=== PATIENT | female | born 1995 | race Two or more races ===

== ENCOUNTER 2019-06-01 16:25 | Inpatient (IN) | payer OTHER ==
[2019-06-01] MEDS ORDERED: AMPICILLIN SODIUM 2 GM VIAL ONE (17:22)
[2019-06-01] MEDS ORDERED: AMPICILLIN - 2 GM in SODIUM CHLORIDE 100 ML IVPB ONE (17:30)
[2019-06-01 17:48] VITALS: BMI 32.9
[2019-06-01] MEDS ORDERED: DEXTROSE 5%-LACTATED RINGERS 1,000 ML IV SCH ×2 (18:45→19:30)
[2019-06-01 18:49] LABS: BASO % 0.2 % (0-2.0); EOS % 0.6 % (0-4.5); HEMATOCRIT 29.3 % (32.4-45.2); HEMOGLOBIN 9.5 GM/dL (10.7-15.3); LYMPH % 22.6 % (8-40); MCH 25.6 pg (25.7-33.7); MCHC 32.3 g/dl (32.0-36.0); MEAN CELL VOLUME 79.2 fl (80-96); MEAN PLT VOLUME 8.2 fl (7.5-11.1); MONO % 9.1 % (3.8-10.2); NEUT % 67.5 % (42.8-82.8); PLATELET COUNT 282 K/MM3 (134-434); RDW 16.7 % (11.6-15.6); WHITE BLOOD COUNT 8.2 K/mm3 (4.0-10.0)
[2019-06-01 19:07] LABS: ACTIVATED PTT 25.2 SECONDS (25.2-36.5); PROTHROMBIN TIME (PATIENT) 11.8 SEC (9.7-13.0)
[2019-06-01 19:16] LABS: BLOOD UREA NITROGEN 5.3 mg/dL (7-18); CALCIUM 8.1 mg/dL (8.5-10.1); CREATININE 0.4 mg/dL (0.55-1.3); POTASSIUM 4.2 mmol/L (3.5-5.1)
[2019-06-01] MEDS ORDERED: BUTORPHANOL TARTRATE 1 MG/ML VIAL IVPUSH PRN (19:18)
[2019-06-01] MEDS ORDERED: PROMETHAZINE HCL 25 MG/1 ML VIAL IVPB PRN (19:19)
[2019-06-01] MEDS ORDERED: PROMETHAZINE HCL 25 MG/1 ML VIAL ONE (19:25)
--- NOTE | 2019-06-01 19:28 | HP ---
Past Medical History - Admission Chief Complaint: Labor pain History of Present Illness: 24 yo @ 36.4 weeks gestation, EDC 06/25/19, admitted for labor pain. She has h/o delivery and was on [place] throughout the . She was transferred to [facility] but opted to come to [facility] for delivery. Upon admission she was 6-7cm dilated with intact membrane. History Source: Patient Limitations to Obtaining History: No Limitations - Past Medical History ...: 3 ...Para: 2 ...Term: 0 ...: 2 ...Spon : 0 ...Induced : 0 ...Multiple Gestation: 0 ...EDC by Sono: 06/25/19 - Past Surgical History Past Surgical History: Yes: None Hx Myomectomy: No Hx Transabdominal Cerclage: No - Smoking History Smoking history: Never smoked Have you smoked in the past 12 months: No - Alcohol/Substance Use Hx Alcohol Use: No History of Substance Use: reports: None - Social History Do you think of yourself as: Straight/Heterosexual History of Recent Travel: No Home Medications - Allergies Allergies/Adverse Reactions: Allergies Allergy/AdvReac Type Severity Reaction Status Date / Time metronidazole [From Flagyl] Allergy Intermediate Swelling Verified 06/01/19 17: 25 - Home Medications Home Medications: Ambulatory Orders Hydroxyprogesterone Caproate [[place]] 250 mg IM WEEKLY 03/04/19 Pnv No.95/Ferrous Fum/Folic AC [ Vitamin Tablet] 1 each PO DAILY Family Medical History Family History: Unremarkable Review of Systems - Review of Systems Constitutional: reports: No Symptoms Eyes: reports: No Symptoms HENT: reports: No Symptoms Neck: reports: No Symptoms Cardiovascular: reports: No Symptoms Respiratory: reports: No Symptoms Gastrointestinal: reports: No Symptoms Genitourinary: reports: Pain Breasts: reports: No Symptoms Reported Musculoskeletal: reports: No Symptoms Integumentary: reports: No Symptoms Neurological: reports: No Symptoms Endocrine: reports: No Symptoms Hematology/Lymphatic: reports: No Symptoms Psychiatric: reports: No Symptoms Pain Intensity: 8 Physical Exam - Maternity Vital Signs: Vital Signs Temperature 98.5 F 06/01/19 18:00 Pulse Rate 94 H 06/01/19 18:00 Respiratory Rate 18 06/01/19 18:00 Blood Pressure 120/84 06/01/19 18:00 O2 Sat by Pulse Oximetry (%) Constitutional: Yes: Well Nourished Eyes: Yes: Conjunctiva Clear HENT: Yes: Atraumatic Neck: Yes: Supple Cardiovascular: Yes: Regular Rate and Rhythm Lungs: Clear to auscultation - Abdominal Exam/OB Number of Fetuses: Single Presentation: Vertex - Vaginal Exam/OB Dilatation (cm): 6 Effacement (%): 90 Amniotic Membrane Status: Intact Presentation: Vertex/Position Station: -1 - Physical Exam Musculoskeletal: Yes: WNL Extremities: Yes: WNL ...Motor Strength: WNL Psychiatric: Yes: Alert, Oriented - Labs Lab Results: CBC, BMP 06/01/19 18:30 06/01/19 18:30 Problem List - Problems (1) 36 weeks gestation of Problems reviewed: Yes Code(s): Z3A.36 - 36 WEEKS GESTATION OF (2) Pain during labor Code(s): O99.89 - OTH DISEASES AND CONDITIONS COMPL PREG/CHLDBRTH; R52 - PAIN, UNSPECIFIED (3) History of delivery, currently in third trimester Code(s): O09.213 - SUPRVSN OF PREG W HISTORY OF PRE-TERM LABOR, THIRD TRIMESTER Assessment/Plan 36 weeks gestation H/O delivery Labor pain Admit to L&D Ampicillin Analgesia as needed Anticipate
[2019-06-01] MEDS ORDERED: OXYTOCIN 20 UNITS in 0.9% NS 20 UNIT/1,000 ML INFUS.BAG IV ONE (20:00)
[2019-06-01] MEDS ORDERED: BENZOCAINE 28 GM HEMORRHOIDAL OINTMENT TP PRN (20:05)
[2019-06-01] MEDS ORDERED: WITCH HAZEL 50% (TUCKS) 40 PAD/JAR PAD TP PRN (20:05)
[2019-06-01] MEDS ORDERED: BISACODYL 10 MG SUPP.RECT RC PRN (20:05)
[2019-06-01] MEDS ORDERED: BENZOCAINE 20% 57 GM BOTTLE TP PRN (20:05)
[2019-06-01] MEDS ORDERED: METHYLERGONOVINE MALEATE 0.2 MG/1 ML AMP IM PRN (20:05)
--- NOTE | 2019-06-01 20:11 | PN ---
Delivery - Delivery Vaginal Delivery: Spontaneous Episiotomy/Laceration: None EBL (cc): 300 Delivery, Single - Feeding Plan Initial Plan: Elected not to breastfeed exclusively throughout hospitalization Remarks - Remarks Remarks: Normal spontaneous vaginal delivery of a live infant girl over intact perineum. Nose / Oropharynx suctioned @ perineum. Cord clamped and cut. Baby handed to nurse. Placenta expelled spontaneously intact. Mother in stable condition
[2019-06-01] MEDS ORDERED: OXYTOCIN 20 UNITS in 0.9% NS 20 UNIT/1,000 ML INFUS.BAG IV SCH (20:15)
[2019-06-01] MEDS: ACETAMINOPHEN 325 MG TABLET (FP) PO PRN (22:30)
[2019-06-01] MEDS: FERROUS SO4 325 MG TABLET (FP) PO SCH (22:30)
[2019-06-01] MEDS: IBUPROFEN 600 MG TABLET (FP) PO PRN (22:31)
[2019-06-02] MEDS: AMPICILLIN - 1 GM in SODIUM CHLORIDE 100 ML IVPB SCH ×3 (05:26→22:40)
[2019-06-02] MEDS ORDERED: PNEUMOCOCCAL 23 VACCINE 0.5 ML VIAL IM ONE (06:15)
[2019-06-02 07:14] LABS: BASO % 0.3 % (0-2.0); EOS % 0.7 % (0-4.5); HEMATOCRIT 25.6 % (32.4-45.2); HEMOGLOBIN 8.4 GM/dL (10.7-15.3); LYMPH % 21.4 % (8-40); MEAN PLT VOLUME 8.3 fl (7.5-11.1); MONO % 9.6 % (3.8-10.2); PLATELET COUNT 204 K/MM3 (134-434); RBC 3.24 M/mm3 (3.60-5.2); RDW 16.5 % (11.6-15.6); WHITE BLOOD COUNT 9.5 K/mm3 (4.0-10.0)
[2019-06-02] MEDS: PRENATAL VITAMINS W/ FOLIC ACID TABLET (FP) PO SCH (09:13)
[2019-06-02] MEDS: FERROUS SO4 325 MG TABLET (FP) PO SCH ×2 (09:13→21:35)
[2019-06-02] MEDS: IBUPROFEN 600 MG TABLET (FP) PO PRN ×3 (09:16→21:35)
[2019-06-02] MEDS: ACETAMINOPHEN 325 MG TABLET (FP) PO PRN ×3 (09:17→21:35)
[2019-06-02] MEDS ORDERED: PNEUMOC 13-VAL CONJ-DIP CRM/PF 0.5 ML DISP.SYRIN IM ONE (10:00)
[2019-06-02] MEDS ORDERED: FLU VACC QS2019-20(6MOS UP)/PF 60 MCG/0.5 ML SYRINGE IM ONE (10:00)
[2019-06-02] MEDS ORDERED: FLU VACCINE QUAD 60 MCG/0.5 ML (MDV 19-20) IM ONE (10:00)
[2019-06-02] MEDS ORDERED: DIPHTH,PERTUSS(ACELL),TET 0.5 ML DISP.SYRIN IM ONE (10:00)
[2019-06-02 14:46] LABS: RPR NONREACTIVE (NONREACTIVE)
[2019-06-02] MEDS ORDERED: SENNOSIDES/DOCUSATE COMBO (SENNA PLUS) TABLET (UD) PO PRN (22:00)
--- NOTE | 2019-06-03 06:40 | DS ---
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: Vital Signs Temperature 98.6 F 06/02/19 20:43 Pulse Rate 72 06/02/19 20:43 Respiratory Rate 18 06/02/19 20:43 Blood Pressure 108/58 L 06/02/19 20:43 O2 Sat by Pulse Oximetry (%) 100 06/01/19 21:45 Constitutional: Yes: Well Nourished, No Distress Gastrointestinal: Yes: WNL, Soft ....Post : Yes: Uterus firm, Uterus non-tender Breast(s): Yes: WNL Extremities: Yes: WNL Neurological: Yes: WNL, Alert, Oriented Labs: CBC, BMP 06/02/19 06:52 06/01/19 18:30 Delivery - Delivery Vaginal Delivery: Spontaneous Type of Anesthesia: None Episiotomy/Laceration: None EBL (cc): 300 Delivery, Single - Stages of Labor Date 1st Stage Initiatied: 06/01/19 Time 1st Stage Initiated: 17:00 Date 2nd Stage Initiated: 06/01/19 Time 2nd Stage Initiated: 19:45 Date of Delivery: 06/01/19 Time of Delivery: 19:55 Time Placenta Delivered: 20:00 - 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 Gender: Female Weight: 6 lb 4 oz Position: Right, OA Total Hours ROM (Hrs/Mins): 55m - 1 Minute Total Score: 9 5 Minutes Total Score: 9 - [place] Feeding Plan Initial Plan: Elected not to breastfeed exclusively throughout hospitalization Discharge Summary Reason For Visit: ADMIT LABOR Current Active Problems 36 weeks gestation of (Acute) History of delivery, currently in third trimester (Acute) Pain during labor (Acute) Condition: Good - Instructions Diet, Activity, Other Instructions: Physical activity Resume your normal everyday activity as tolerated no heavy lifting or exercise until seen by your surgeon. You may walk unlimited korin of and climb stairs. You may resume driving the car when you feel safe and comfortable behind the wheel. No sexual activity as instructed. Wound care If you have a bandage, leave it on, and keep dry for 48-72 hours. After that time discard the outer bandage. If they are tapes on the skin under the out of bandage leave them in place. They will peel off in the next 7 to 10 days. Do Not Peel them off. You may shower the day after surgery. If there are tapes present on the skin, you may shower over them. Diet There are no dietary restrictions. Eat healthy, high-fiber foods. Drink 6 to 8 glasses of liquid each day. This will assist in keeping your bowels are regular. Pain management You may take Tylenol or acetaminophen or Ibuprofen (for example, Motrin, Advil etc.) from my pain prescription medication is ordered should be taken as prescribed for moderate to severe pain. Call MD for any of the following: Severe pain not relieved by medication Fever of 101 or higher Excessive bleeding or drainage on dressing Inability to urinate Disposition: HOME - Home Medications Comprehensive Discharge Medication List: Ambulatory Orders Hydroxyprogesterone Caproate [[place]] 250 mg IM WEEKLY 03/04/19 Pnv No.95/Ferrous Fum/Folic AC [ Vitamin Tablet] 1 each PO DAILY Ibuprofen [Motrin -] 600 mg PO QID #28 tablet 06/03/19
[2019-06-03] MEDS: FERROUS SO4 325 MG TABLET (FP) PO SCH (09:31)
[2019-06-03] MEDS: PRENATAL VITAMINS W/ FOLIC ACID TABLET (FP) PO SCH (09:31)
[2019-06-03 11:10] VITALS: BP 110/69; PULSE 77; TEMP 98.3
[2019-06-03] MEDS: IBUPROFEN 600 MG TABLET (FP) PO PRN (12:19)
[2019-06-03] MEDS: ACETAMINOPHEN 325 MG TABLET (FP) PO PRN (12:20)
== END 2019-06-03 14:05 | disposition home or self-care (01) | DRG 560 ==
LOC: JDEL 16:25 → JLDR 17:00 → J3W 22:11
PROVIDERS: ADMIT Obstetrics & Gynecology; ATTEND Obstetrics & Gynecology
PROC: 10E0XZZ Delivery of Products of Conception, External Approach (ICD-10-PCS; principal; 2019-06-01)
DX: O60.14X0 Preterm labor third trimester with preterm delivery third trimester, not applicable or unspecified (principal); Z3A.36 36 weeks gestation of pregnancy; Z37.0 Single live birth
CPT/HCPCS: 36415; 59025; 59409; 80048; 85025; 85610; 85730; 86593; 86850; 86900; 86901; 87389; 90686; 90715; 90732; G0008; G0009

== ENCOUNTER 2023-08-25 06:17 | Emergency (ER) | payer OTHER ==
[2023-08-25 06:30] VITALS: BP 121/80; PULSE 110; RESP 18; TEMP 98.7; BMI 27.4
[2023-08-25 09:18] LABS: BASO % 0.5 % (0-2.0); EOS % 0.2 % (0-4.5); HEMATOCRIT 35.1 % (32.4-45.2); HEMOGLOBIN 11.9 GM/dL (10.7-15.3); LYMPH % 18.6 % (8-40); MCH 29.9 pg (25.7-33.7); MCHC 33.8 g/dl (32.0-36.0); MEAN CELL VOLUME 88.5 fl (80-96); MEAN PLT VOLUME 7.6 fl (7.5-11.1); MONO % 4.7 % (3.8-10.2); PLATELET COUNT 299 10^3/uL (134-434); RBC 3.96 M/mm3 (3.60-5.2); RDW 13.9 % (11.6-15.6); WHITE BLOOD COUNT 8.7 K/mm3 (4.0-10.0)
[2023-08-25 09:20] LABS: EPI CELLS >36 /uL (0-25.1); HYALINE CASTS 5 /uL (0-3.1); PH,URINE 6.5 (5.0-8.0); URINE APPEARANCE CLOUDY; URINE BACTERIA >9,000 /uL (0-1359); URINE BILIRUBIN NEGATIVE (NEGATIVE); URINE COLOR YELLOW; URINE GLUCOSE (UA) NEGATIVE (NEGATIVE); URINE KETONE NEGATIVE (NEGATIVE); URINE LEUK ESTERASE TRACE (NEGATIVE); URINE NITRITE POSITIVE (NEGATIVE); URINE PROTEIN NEGATIVE (NEGATIVE); URINE RBC 55 /uL (0-23.9); URINE UROBILINOGEN 0.2 mg/dL (0.2-1.0); URINE WBC 70 /uL (0-25.8)
[2023-08-25 09:35] LABS: POTASSIUM 4.6 mmol/L (3.5-5.1)
[2023-08-25 09:37] LABS: CALCIUM 9.5 mg/dL (8.5-10.1)
[2023-08-25 09:38] LABS: ALBUMIN 3.2 g/dl (3.4-5.0)
[2023-08-25 09:41] LABS: CREATININE 0.5 mg/dL (0.55-1.3)
[2023-08-25 09:42] LABS: BILIRUBIN,TOTAL 0.2 mg/dL (0.2-1); TOT PROT 7.3 g/dl (6.4-8.2)
[2023-08-25 10:01] LABS: YEAST NO SEEN (NEGATIVE)
[2023-08-25] MEDS ORDERED: NITROFURANTOIN MONOHYD/M-CRYST 100 MG CAPSULE PO SCH (12:45)
[2023-08-25] MEDS ORDERED: CEPHALEXIN MONOHYDRATE 500 MG CAPSULE (UD) PO ONE (12:48)
[2023-08-25] MEDS ORDERED: CEPHALEXIN MONOHYDRATE 500 MG CAPSULE (UD) ONE (12:53)
== END 2023-08-25 13:03 | disposition home or self-care (01) ==
LOC: JER 06:17
DX: O20.9 Hemorrhage in early pregnancy, unspecified (principal); Z3A.08 8 weeks gestation of pregnancy
CPT/HCPCS: 36415; 76817-TC; 80053; 81003; 84702; 85025; 86850; 86900; 86901; 87086; 87186; 99284-25

== ENCOUNTER 2023-10-03 04:00 | Day surgery (SDC) | payer OTHER ==
[2023-10-02 11:47] VITALS: BMI 27.1
[2023-10-03] MEDS ORDERED: cefOXitin SODIUM 2 GM VIAL (RESTRICTED TO ID) IVPB ONE (10:35)
[2023-10-03] MEDS ORDERED: ceFAZolin SODIUM 1 GM VIAL ONE ×2 (10:58→12:24)
[2023-10-03] MEDS ORDERED: SODIUM CHLORIDE 0.9% P/F 10 ML VIAL IJ ONE ×2 (12:24→12:50)
[2023-10-03] MEDS ORDERED: ACETAMINOPHEN INJECTION 100 ML IVPB ONE (12:27)
[2023-10-03] MEDS ORDERED: ONDANSETRON 4 MG/2 ML VIAL ONE (12:56)
[2023-10-03] MEDS ORDERED: ONDANSETRON 4 MG/2 ML VIAL IVPUSH PRN (13:54)
[2023-10-03] MEDS ORDERED: PROMETHAZINE HCL 25 MG/1 ML VIAL IVPB PRN (13:54)
[2023-10-03] MEDS ORDERED: LACTATED RINGERS SOLUTION 1,000 ML IV SCH (14:00)
[2023-10-03] MEDS ORDERED: INDOMETHACIN 50 MG CAPSULE PO ONE (14:00)
[2023-10-03] MEDS: ACETAMINOPHEN 500 MG TABLET (FP) PO SCH (23:18)
[2023-10-04] MEDS: ACETAMINOPHEN 500 MG TABLET (FP) PO SCH ×2 (05:10→10:45)
[2023-10-04 11:55] VITALS: BP 97/59; PULSE 78; RESP 17; TEMP 98.9
== END 2023-10-04 12:55 | disposition home or self-care (01) ==
LOC: JASUSAT 04:00 → JASU-SURG 04:00 → J3W 19:51 → JASUSAT 10-04 12:55
PROVIDERS: ATTEND Obstetrics & Gynecology Maternal & Fetal Medicine
PROC: 0UVC7ZZ Restriction of Cervix, Via Natural or Artificial Opening (ICD-10-PCS; principal; 2023-10-03 11:45)
DX: O34.32 Maternal care for cervical incompetence, second trimester (principal); Z3A.14 14 weeks gestation of pregnancy
CPT/HCPCS: 94760; J0131

== ENCOUNTER 2024-02-14 15:05 | Observation (INO) | payer OTHER ==
[2024-02-14] MEDS: SODIUM CHLORIDE 500 ML IV ONE (15:30)
[2024-02-14] MEDS: SODIUM CHLORIDE 1,000 ML IV SCH (16:00)
[2024-02-14 16:29] LABS: URINE APPEARANCE CLEAR; URINE BILIRUBIN NEGATIVE (NEGATIVE); URINE COLOR YELLOW; URINE GLUCOSE (UA) NEGATIVE (NEGATIVE); URINE KETONE 2+ (NEGATIVE); URINE LEUK ESTERASE NEGATIVE (NEGATIVE); URINE NITRITE NEGATIVE (NEGATIVE); URINE PROTEIN NEGATIVE (NEGATIVE); URINE UROBILINOGEN 0.2 mg/dL (0.2-1.0)
[2024-02-14] MEDS ORDERED: BETAMET ACET/BETAMET NA PH 30 MG/5 ML VIAL ONE (17:45)
[2024-02-14] MEDS: BETAMET ACET/BETAMET NA PH 30 MG/5 ML VIAL IM ONE (17:50)
[2024-02-14] MEDS: TERBUTALINE SULFATE 1 MG/1 ML VIAL SQ ONE (19:45)
[2024-02-14 23:32] VITALS: BMI 30.3
[2024-02-14 23:34] LABS: BASO % 0.1 % (0-2.0); HEMATOCRIT 28.1 % (32.4-45.2); HEMOGLOBIN 9.3 GM/dL (10.7-15.3); LYMPH % 8.6 % (8-40); MCH 27.7 pg (25.7-33.7); MEAN CELL VOLUME 83.9 fl (80-96); MEAN PLT VOLUME 7.6 fl (7.5-11.1); MONO % 1.4 % (3.8-10.2); NEUT % 89.9 % (42.8-82.8); PLATELET COUNT 242 10^3/uL (134-434); RBC 3.35 M/mm3 (3.60-5.2); RDW 14.7 % (11.6-15.6); WHITE BLOOD COUNT 9.8 K/mm3 (4.0-10.0)
[2024-02-14 23:46] LABS: POTASSIUM 3.9 mmol/L (3.5-5.1)
[2024-02-14 23:47] LABS: CALCIUM 8.4 mg/dL (8.5-10.1); INR 1.03 (0.83-1.09); PROTHROMBIN TIME (PATIENT) 11.8 SEC (9.7-13.0)
[2024-02-14 23:48] LABS: BLOOD UREA NITROGEN 7.3 mg/dL (7-18)
[2024-02-14 23:49] LABS: ACTIVATED PTT 25.7 SECONDS (25.2-36.5)
[2024-02-14 23:51] LABS: CREATININE 0.5 mg/dL (0.55-1.3)
[2024-02-15 00:45] LABS: HIV INTERPRETATION NEGATIVE (NEGATIVE)
[2024-02-15] MEDS: SODIUM CHLORIDE 1,000 ML IV SCH (03:25)
[2024-02-15 06:07] VITALS: RESP 17
[2024-02-15 09:46] VITALS: BP 122/85; PULSE 70; TEMP 98.4
[2024-02-15] MEDS: ACETAMINOPHEN 325 MG TABLET (FP) PO PRN (10:13)
[2024-02-15] MEDS: BETAMET ACET/BETAMET NA PH 30 MG/5 ML VIAL IM ONE (17:31)
== END 2024-02-15 18:30 | disposition home or self-care (01) ==
LOC: JDEL 15:05 → JLDR 21:25 → J3W 02-15 00:30
PROVIDERS: ADMIT Obstetrics & Gynecology Maternal & Fetal Medicine; ATTEND Obstetrics & Gynecology Maternal & Fetal Medicine
PROC: 3E0233Z Introduction of Anti-inflammatory into Muscle, Percutaneous Approach (ICD-10-PCS; principal; 2024-02-14)
PROC: 3E0337Z Introduction of Electrolytic and Water Balance Substance into Peripheral Vein, Percutaneous Approach (ICD-10-PCS; 2024-02-14)
DX: O34.33 Maternal care for cervical incompetence, third trimester (principal); O09.213 Supervision of pregnancy with history of pre-term labor, third trimester; Z3A.33 33 weeks gestation of pregnancy; Z88.8 Allergy status to other drugs, medicaments and biological substances
CPT/HCPCS: 36415; 80048; 81003; 85025; 85610; 85730; 86780; 86803; 86850; 86900; 86901; 87086; 87389; 96360; 96361; 96372; G0378

== ENCOUNTER 2024-03-10 05:35 | Inpatient (IN) | payer OTHER ==
[2024-03-10] MEDS: SODIUM CHLORIDE 1,000 ML IV SCH (06:30)
[2024-03-10] MEDS ORDERED: OXYTOCIN 20 UNITS in 0.9% NS 20 UNIT/1,000 ML INFUS.BAG IV ONE ×2 (07:03→09:52)
[2024-03-10] MEDS ORDERED: PENICILLIN G POTASSIUM 5,000,000 UNIT/250 ML BAG IVPB ONE (07:04)
[2024-03-10 07:05] VITALS: BMI 32.1
[2024-03-10] MEDS ORDERED: PENICILLIN G POTASSIUM 5,000,000 PRE-DOCK IN NS 250 ML IVPB ONE (07:15)
[2024-03-10] MEDS: PENICILLIN G POTASSIUM 5,000,000 (5Mm) UNIT VIAL IVPB ONE (07:15)
[2024-03-10] MEDS ORDERED: SODIUM CHLORIDE 1,000 ML IV STA (07:18)
[2024-03-10] MEDS ORDERED: DEXTROSE 5%-LACTATED RINGERS 1,000 ML IV SCH (07:30)
[2024-03-10] MEDS: OXYTOCIN 20 UNITS in 0.9% NS 20 UNIT/1,000 ML INFUS.BAG IV SCH (08:15)
[2024-03-10 08:47] LABS: CORD HCO3 19.2 mmHg (20-29); CORD PCO2 36.9 mmHg (30-78); CORD pH 7.334 (7.14-7.44)
[2024-03-10] MEDS ORDERED: BENZOCAINE 20% 57 GM BOTTLE TP PRN (08:54)
[2024-03-10] MEDS ORDERED: WITCH HAZEL 50% (TUCKS) 40 PAD/JAR PAD TP PRN (08:54)
[2024-03-10] MEDS: IBUPROFEN 600 MG TABLET (FP) PO PRN (11:33)
[2024-03-11] MEDS: ACETAMINOPHEN 325 MG TABLET (FP) PO PRN (00:20)
[2024-03-11 07:29] LABS: BASO % 0.3 % (0-2.0); EOS % 0.2 % (0-4.5); HEMOGLOBIN 9.2 GM/dL (10.7-15.3); MCH 28.2 pg (25.7-33.7); MCHC 34.1 g/dl (32.0-36.0); MEAN CELL VOLUME 82.8 fl (80-96); NEUT % 65.5 % (42.8-82.8); PLATELET COUNT 235 10^3/uL (134-434); RBC 3.26 M/mm3 (3.60-5.2); RDW 15.4 % (11.6-15.6); WHITE BLOOD COUNT 10.4 K/mm3 (4.0-10.0)
[2024-03-11] MEDS: DIPHTH,PERTUSS(ACELL),TET 0.5 ML DISP.SYRIN IM ONE (10:00)
[2024-03-11] MEDS ORDERED: DOCUSATE SODIUM 100 MG CAPSULE (FP) PO PRN (16:07)
[2024-03-11] MEDS: FERROUS SO4 325 MG TABLET (FP) PO SCH (17:56)
[2024-03-11] MEDS ORDERED: FERROUS SO4 325 MG TABLET (FP) PO SCH (22:00)
[2024-03-11 22:19] VITALS: RESP 18
[2024-03-12 10:40] VITALS: BP 105/53; PULSE 67; TEMP 97.5
== END 2024-03-12 12:10 | disposition home or self-care (01) | DRG 560 ==
LOC: JDEL 05:35 → JLDR 06:10 → J3W 10:50
PROVIDERS: ADMIT Obstetrics & Gynecology Maternal & Fetal Medicine; ATTEND Obstetrics & Gynecology Maternal & Fetal Medicine
PROC: 0HQ9XZZ Repair Perineum Skin, External Approach (ICD-10-PCS; principal; 2024-03-10)
PROC: 10E0XZZ Delivery of Products of Conception, External Approach (ICD-10-PCS; 2024-03-10)
DX: O99.824 Streptococcus B carrier state complicating childbirth (principal); O70.0 First degree perineal laceration during delivery; O99.02 Anemia complicating childbirth; D64.9 Anemia, unspecified; Z3A.37 37 weeks gestation of pregnancy; Z37.0 Single live birth
CPT/HCPCS: 36415; 36600; 59025; 59409; 80053; 82803; 85025; 85610; 86762; 86780; 86850; 86900; 86901; 87340; 90715